=== PATIENT | male | born 1955 | race Caucasian/White ===

== ENCOUNTER 2017-02-21 21:56 | Emergency (ER) | payer SELFPAY ==
[~2017-02-21] VITALS: Ht 167.6 cm; Wt 99.8 kg
--- NOTE | 2017-02-21 21:56 | NUR ---
PT BIBA TO ED WITH C/O ALOC PER S/P PT. WAS FOUND BY PD ALOC, ETOH, BS 130 ON SCENE. PER PT. HX.HIGH CHOLESTEROL. PT WALKING AROUND PARKING LOT-WNL GAIT, AAOX4, PT DENIES ANY TRAUMA. ER TO [facility].
[2017-02-21 22:03] VITALS: BP 122/88
--- NOTE | 2017-02-21 22:31 | NUR ---
Pupils equal and reactive to light bilaterally. No facial droop noted. No smile deficit noted. Speech normal for patient. Patient is alert and oriented to person, place, time and event. Bilateral hand platen press feeder equal. Bilateral foot push equal.
--- NOTE | 2017-02-21 22:59 | NUR ---
Patient appears to be resting comfortably in bed. Vital Signs within normal limits. Respirations even and unlabored.
--- NOTE | 2017-02-21 23:34 | NUR ---
Patient discharged with v/s stable. Written and verbal after care instructions given and explained. Patient alert, oriented and verbalized understanding of instructions. Wheel Chair Assisted with to home. All questions addressed prior to discharge. ID band removed. Patient advised to follow up with PMD.NO RX given. Patient educated on indication of medication including possible reaction and side effects. Opportunity to ask questions provided and answered.
[2017-02-22 00:03] VITALS: BP 124/76
== END 2017-02-22 00:03 | disposition home or self-care (01) ==
LOC: MED 21:56
DX: F10.129 Alcohol abuse with intoxication, unspecified (principal); I10 Essential (primary) hypertension
CPT/HCPCS: 99281